=== PATIENT | female | born 1965 | race Caucasian/White ===

== ENCOUNTER 2022-07-07 11:42 | Outpatient (CLI) | payer OTHER, SELFPAY ==
--- OUTSIDE RECORDS SUMMARY | 2022-07-07 11:44 | XMS_ITS | Clinical Summary ---
:1965 Author Organization [facility] [place] [address] Care Team Providers Name Role Phone Isabel Gallagher MD Primary Care Provider Unavailable Allergies Active Allergy Reactions Severity Noted Date Comments Trazodone *Unknown Low 06/03/2018 jitters Medications Not on file Active Problems Not on file Social History Tobacco Use Types Packs/Day Years Used Date Never Assessed Sex Assigned at Date Recorded Not on file Last Filed Vital Signs Vital Sign Reading Time Taken Comments Blood Pressure 144/91 01/27/2021 5:49 PM CDT Pulse 108 01/27/2021 3:15 PM CDT Temperature 37.1 ??C (98.8 ??F) 01/27/2021 3:15 PM CDT Respiratory Rate 18 01/27/2021 5:49 PM CDT Oxygen Saturation 100% 01/27/2021 5:49 PM CDT Inhaled Oxygen Concentration - - Weight 61.2 kg (135 lb) 01/27/2021 3:48 PM CDT Height 167.6 cm (5' 6) 01/27/2021 3:48 PM CDT Body Mass Index 21.79 01/27/2021 3:48 PM CDT Plan of Treatment Not on file Results Not on filefrom Last 3 Months Insurance Payer Benefit Plan / Subscriber ID Effective Dates Phone Addre ss Type Group [employer] [id number] 2013-Present [address] [place] [address] Care Teams Condominium Property Manager Relationship Specialty Start Date End Date Isabel Gallagher MD PCP - General Family Practice 01/07/11
--- OUTSIDE RECORDS SUMMARY | 2022-07-07 11:44 | XMS_ITS | Encounter Summary ---
:1965 Author Organization [facility] Address [address] [place] [address] Care Team Providers Name Role Phone Isabel Gallagher Primary Care Provider Encounter Details Date Type Department Care Team Description [facility] CONVERSION Provider, Histor ical Social History Tobacco Use Types Packs/Day Years Used Date Smoking Tobacco: Never Smokeless Tobacco: Never Sex Assigned at Date Recorded Not on file documented as of this encounter Plan of Treatment Not on filedocumented as of this encounter Procedures Procedure Name Priority Date/Time Associated Diagnosis Comme nts XR ESOPHAGRAM Routine 06/26/2004 12:00 AM Results for this RN INFUSION procedure are i n the results section . documented in this encounter Results XR Esophagram (06/26/2004 12:00 AM RN INFUSION) Anatomical Region Laterality Modality Chest Other Specimen (Source) Anatomical Location Collection Method / Collectio n Time Received Time / Laterality Volume Narrative 06/26/2004 12:00 AM RN INFUSION See Historical Hospital Medical Record f or documentation Procedure Note Provider, Historical - 01/18/2021Formatt ing of this note might be different from the original. See Historical Hospital Medical Record f or documentation Historical Provider IMG DIAGNOSTIC IMAGING ORDER MATTEO documented in this encounter Visit Diagnoses Not on filedocumented in this encounter Care Teams Jogger Operator Relationship Specialty Start Date End Date Isabel Gallagher PCP - General Family Practice 04/01/19 documented as of this encounter
--- OUTSIDE RECORDS SUMMARY | 2022-07-07 11:44 | XMS_ITS | Encounter Summary ---
:1965 Author Organization [facility] Address [address] [place] [address] Care Team Providers Name Role Phone Isabel Gallagher Primary Care Provider Encounter Details Date Type Department Care Team Description 03/05/2021 Records - [facility] ERENDIRA PADGETT CONVERSION Provider, Histor ical Social History Tobacco Use Types Packs/Day Years Used Date Smoking Tobacco: Never Smokeless Tobacco: Never Sex Assigned at Date Recorded Not on file documented as of this encounter Plan of Treatment Not on filedocumented as of this encounter Procedures Procedure Name Priority Date/Time Associated Diagnosis Comme nts MA SCREENING Routine 09/25/2005 12:00 AM Results for this BILATERAL INSURANCE FOLLOW UP REPRESENTATIVE procedure are i n the results section. documented in this encounter Results MA Screening Bilateral (09/25/2005 12:00 AM INSURANCE FOLLOW UP REPRESENTATIVE) Anatomical Region Laterality Modality Breast Bilateral Other Specimen (Source) Anatomical Location Collection Method / Collectio n Time Received Time / Laterality Volume Narrative 09/25/2005 12:00 AM INSURANCE FOLLOW UP REPRESENTATIVE See Historical Hospital Medical Record f or documentation Procedure Note Provider, Historical - 03/05/2021Formatt ing of this note might be different from the original. See Historical Hospital Medical Record f or documentation Historical Provider IMG MAMMOGRAPHY ORDERABLES documented in this encounter Visit Diagnoses Not on filedocumented in this encounter Care Teams Workforce Investment Act Career Manager Relationship Specialty Start Date End Date Isabel Gallagher PCP - General Family Practice 04/01/19 documented as of this encounter
--- OUTSIDE RECORDS SUMMARY | 2022-07-07 11:44 | XMS_ITS | Encounter Summary ---
:1965 Author Organization [facility] Address [address] [place] [address] Care Team Providers Name Role Phone AileenIsabelAnabel Primary Care Provider Reason for Referral Diagnostic Imaging XR (Routine) - Closed Specialty Diagnoses / Procedures Referred By Contact Refer red To Contact Diagnoses Left foot pain Yaima Nolan, AURELIO, Procedures XR Foot Left G/E 3 Views Podiatry/Foot and Ankle Surgery [address] [place] [address] Referral ID Status Reason Start Date Expiration Date Visits Requ ested Visits Authorized [id number] Closed 04/01/2019 03/31/2020 1 1 Reason for Visit Reason Comments Musculoskeletal Problem Encounter Details Date Type Department Care Team Description 04/01/2019 Office Visit [facility] Yaima Staton, Left fo ot pain (Primary Dx); [facility] [place] DPDarin, Podiatry/Foot Gangli on cyst of left foot Podiatry and Ankle Surgery [address] [facility] [address] [place] [address] [place], [place] [phone] (Wo rk) Social History Tobacco Use Types Packs/Day Years Used Date Smoking Tobacco: Never Smokeless Tobacco: Never Tobacco Cessation: Counseling Given: No Sex Assigned at Date Recorded Not on file documented as of this encounter Last Filed Vital Signs Vital Sign Reading Time Taken Comments Blood Pressure 122/62 04/01/2019 2:20 PM CDT Pulse - - Temperature - - Respiratory Rate - - Oxygen Saturation - - Inhaled Oxygen Concentration - - Weight 61.7 kg (136 lb) 04/01/2019 2:20 PM CDT Height 167.6 cm (5' 6) 04/01/2019 2:20 PM CDT Body Mass Index 21.95 04/01/2019 2:20 PM CDT documented in this encounter Patient Instructions Patient InstructionsYoandy Byrne - 04/01/2019 2:15 PM CDT Thank you for choosing [facility]! [facility] SCHEDULE THURSDAY AM - [place] THURSDAY - [place] [address] [facility] [address] [address] [address] [place] [address] / FX [phone] / FX [phone] THURSDAY - [place] THUR[place]AY AM - [facility] [address] [address] [place] [address] [address] [address] / FX [phone] THURSDAY PM - [place] SCHEDULE SURGERY: [phone] BILLING QUESTIONS: [phone] [place] [address] AFTER HOURS: / FX [phone] APPOINTMENTS: [phone] [employer] ([employer]) [phone] GANGLION CYST A ganglion cyst is a sac filled with a jellylike fluid that originates from a tendon sheath or jointcapsule. The word ???ganglion?? means ???knot?? and is used to describe the knot-like mass or lumpthat forms below the surface of the skin. Ganglion cysts are among the most common benign soft-tissue masses. Although they most often occur on the wrist, they also frequently develop on the foot - usually on the top, but elsewhere as well. Ganglion cysts vary in size, may get smaller and larger, and may even disappear completely, only to return later. CAUSES Although the exact cause of ganglion cysts is unknown, they may arise from trauma - whether a singleevent or repetitive micro-trauma. SYMPTOMS A noticeable lump - often this is the only symptom experienced Tingling or burning, if the cyst is touching a nerve Dull pain or ache - which may indicate the cyst is pressing against a tendon or joint Difficulty wearing shoes due to irritation between the lump and the shoe DIAGNOSIS To diagnose a ganglion cyst, the foot and ankle surgeon will perform a thorough examination of the foot. The lump will be visually apparent and, when pressed in a certain way, it should move freely underneath the skin. Sometimes the surgeon will shine a light through the cyst or remove a small amount of fluid from the cyst for evaluation. Your doctor may take an x-ray, and in some cases additional imaging studies may be ordered. NON-SURGICAL TREATMENT Monitoring, but no treatment. If the cyst causes no pain and does not interfere with walking, the surgeon may decide it is best to carefully watch the cyst over a period of time. Shoe modifications. Wearing shoes that do not rub the cyst or cause irritation may be advised. In addition, placing a pad inside the shoe may help reduce pressure against the cyst. Aspiration and injection. This technique involves draining the fluid and then injecting a steroid medication into the mass. More than one session may be needed. Although this approach is successful in some cases, in many others the cyst returns. SURGICAL TREATMENT When other treatment options fail or are not appropriate, the cyst may need to be surgically removed. While the recurrence rate associated with surgery is much lower than that experienced with aspiration and injection therapy, there are nevertheless cases in which the ganglion cyst returns. BODY WEIGHT AND YOUR FEET The following information is included in the after visit summary for all patients. Body weight can be a sensitive issue to discuss in clinic, but we think the following information is very important. Although we focus on the feet and ankles, we do support the overall health of our patients. Many things can cause foot and ankle problems. Foot structure, activity level, foot mechanics and injuries are common causes of pain. One very important issue that often goes unmentioned, is body weight. Extra weight can cause increased stress on muscles, ligaments, bones and tendons. Sometimes just afew extra pounds is all it takes to put one over her/his threshold. Without reducing that stress, itcan be difficult to alleviate pain. As Foot & Ankle specialists, our job is addressing the lowerextremity problem and possible causes. Regarding extra body weight, we encourage patients to discussdiet and weight management plans with their primary care doctors. It is this team approach that gives you the best opportunity for pain relief and getting you back on your feet. [facility] has a Comprehensive Weight Management Program. This program includes counseling, education,non-surgical and surgical approaches to weight loss. If you are interested in learning more either talk to you primary care provider or call [phone]. documented in this encounter Progress Notes Yaima Nolan, AURELIO, Podiatry/Foot and Ankle Surgery - 04/01/2019 2:15 PM CDT PATIENT HISTORY: Kristal Murray is a 53 year old female who presents to clinic for lump on side of left foot. Has had it for 9 months. Pain can be 3/10 with pressure. Worse with tighter shoes. Triedicing and heat which helps some. wondering what it is and what can be done for it. Review of Systems: Patient denies fever, chills, rash, wound, stiffness, limping, numbness, weakness, heart burn, blood in stool, chest pain with activity, calf pain when walking, shortness of breath with activity, chronic cough, easy bleeding/bruising, swelling of ankles, excessive thirst, fatigue, de pression, anxiety. PAST MEDICAL HISTORY: No past medical history on file. PAST SURGICAL HISTORY: No past surgical history on file. MEDICATIONS: Current Outpatient Medications: ??? lovastatin (MEVACOR) 20 MG tablet, Take 20 mg by mouth At Bedtime, Disp: , Rfl: 2 ??? omeprazole (PRILOSEC) [address] capsule, TAKE 1 CAPSULE BY MOUTH EVERY DAY, Disp: , Rfl: 2 ALLERGIES: No Known Allergies SOCIAL HISTORY: Social History Socioeconomic History ??? Marital status: Spouse name: Not on file ??? Number of children: Not on file ??? Years of education: Not on file ??? Highest education level: Not on file Occupational History ??? Not on file Social Needs ??? Financial resource strain: Not on file ??? Food insecurity: Worry: Not on file Inability: Not on file ??? Transportation needs: Medical: Not on file Non-medical: Not on file Tobacco Use ??? Smoking status: Never Smoker ??? Smokeless tobacco: Never Used Substance and Sexual Activity ??? Alcohol use: Not on file ??? Drug use: Not on file ??? Sexual activity: Not on file Lifestyle ??? Physical activity: Days per week: Not on file Minutes per session: Not on file ??? Stress: Not on file Relationships ??? Social connections: Talks on phone: Not on file Gets together: Not on file Attends adventism service: Not on file Active member of club or organization: Not on file Attends meetings of clubs or organizations: Not on file Relationship status: Not on file ??? Intimate partner violence: Fear of current or ex partner: Not on file Emotionally abused: Not on file Physically abused: Not on file Forced sexual activity: Not on file Other Topics Concern ??? Not on file Social History Narrative ??? Not on file FAMILY HISTORY: No family history on file. EXAM:Vitals: BP 122/62 Ht 1.676 m (5' 6) Wt 61.7 kg (136 lb) BMI 21.95 kg/m?? BMI= Body mass index is 21.95 kg/m??. General appearance: Patient is alert and fully cooperative with history & exam. No sign of distress is noted during the visit. Psychiatric: Affect is pleasant & appropriate. Patient appears motivated to improve health. Respiratory: Breathing is regular & unlabored while sitting. HEENT: Hearing is intact to spoken word. Speech is clear. No gross evidence of visual impairment that would impact ambulation. Dermatologic: Skin is intact to both lower extremities without significant lesions, rash or abrasion. No paronychia or evidence of soft tissue infection is noted. Vascular: DP & PT pulses are intact & regular bilaterally. No significant edema or varicosities noted. CFT and skin temperature is normal to both lower extremities. Neurologic: Lower extremity sensation is intact to light touch. No evidence of weakness or contracture in the lower extremities. No evidence of neuropathy. Musculoskeletal: Patient is ambulatory without assistive device or brace. Palpable fluctuant mass todorsal lateral left foot just distal to sinus tarsi. ASSESSMENT: Left foot pain Ganglion cyst of left foot PLAN: Reviewed patient's chart in [facility]. Talked about cysts. Explained they are jelly filled sacs. Treatments include monitoring, aspiration, surgical removal. Discussed they are highly recurrently. Risks of surgery including infection, painful scar, recurrence, need for further surgery. At this time she is going to monitor it. Try topical pain cream since intermittently sore. Talked about removal. Would be 2 week recovery in boot with weight bearing in boot. Talked about risks including infection, numbness, continued pain, recurrence, need for further surgery, blood loss, blood clotting. You will scar. Yaima Nolan DPM, Podiatry/Foot and Ankle Surgery documented in this encounter Plan of Treatment Not on filedocumented as of this encounter Results XR Foot Left G/E 3 Views (04/01/2019 2:30 PM CDT) Anatomical Region Laterality Modality Foot, Ankle Left Computed Radiography Specimen (Source) Anatomical Location Collection Method / Collectio n Time Received Time / Laterality Volume Impressions 04/01/2019 2:45 PM CDT IMPRESSION: No acute fracture or malalignment. There is normal joint spacing and alignment. Bipartite medial hallux sesamoid. Small plantar calcaneal bone spur. HUMBERTO WILKINS MD Narrative 04/01/2019 2:45 PM CDT FOOT THREE VIEWS LEFT ??04/01/2019 2:30 PM HISTORY: weight bearing; Left foot pain COMPARISON: None. Procedure Note Humberto Wilkins MD - 04/01/2019For matting of this note might be different from the original. FOOT THREE VIEWS LEFT 04/01/2019 2:30 PM HISTORY: weight bearing; Left foot pain COMPARISON: None. IMPRESSION: No acute fracture or malalig nment. There is normal joint spacing and alignment. Bipartite medial hallux sesamoid. Small plantar calcaneal bone spur. HUMBERTO WILKINS MD Yaima Nolan DPM, Podiatry/Foot and Ankle Surgery IMG DIAGNOSTIC IMAGING ORDERABLES documented in this encounter Visit Diagnoses Diagnosis Left foot pain - Primary Pain in limb Ganglion cyst of left foot Left foot pain Pain in limb documented in this encounter Care Teams Php Consultant Relationship Specialty Start Date End Date Isabel Gallagher PCP - General Family Practice 04/01/19 documented as of this encounter
--- OUTSIDE RECORDS SUMMARY | 2022-07-07 11:44 | XMS_ITS | Encounter Summary ---
:1965 Author Organization [facility] Address [address] [place] [address] Care Team Providers Name Role Phone Isabel Gallagher Primary Care Provider Encounter Details Date Type Department Care Team Description 01/19/2021 Records - [facility] PADGETT CONVERSION Provider, Histor ical Social History Tobacco Use Types Packs/Day Years Used Date Smoking Tobacco: Never Smokeless Tobacco: Never Sex Assigned at Date Recorded Not on file documented as of this encounter Plan of Treatment Not on filedocumented as of this encounter Procedures Procedure Name Priority Date/Time Associated Comments Diagnosis US PELVIC Routine 12/10/2005 12:00 Results for this TRANSABDOMINAL AM CDT procedure are in the results section. documented in this encounter Results US Pelvis Complete without Transvaginal (12/10/2005 12:00 AM CDT) Anatomical Region Laterality Modality Abdomen/Pelvis Other Specimen (Source) Anatomical Location Collection Method / Collectio n Time Received Time / Laterality Volume Narrative 12/10/2005 12:00 AM CDT See Historical Hospital Medical Record f or documentation Procedure Note Provider, Historical - 01/19/2021Formatt ing of this note might be different from the original. See Historical Hospital Medical Record f or documentation Historical Provider IMG US ORDERABLES documented in this encounter Visit Diagnoses Not on filedocumented in this encounter Care Teams Production Dispatcher Relationship Specialty Start Date End Date Isabel Gallagher PCP - General Family Practice 04/01/19 documented as of this encounter
--- OUTSIDE RECORDS SUMMARY | 2022-07-07 11:44 | XMS_ITS | Encounter Summary ---
:1965 Author Organization [facility] Address [address] [place] [address] Care Team Providers Name Role Phone Aileen Isabel Samuel Primary Care Provider Reason for Visit Diagnostic Imaging XR (Routine) - Closed Specialty Diagnoses / Procedures Referred By Contact Refer red To Contact Diagnoses Left foot pain Yaima Nolan, DPM, Procedures XR Foot Left G/E 3 Views Podiatry/Foot and Ankle Surgery [address] [place] [address] Referral ID Status Reason Start Date Expiration Date Visits Requ ested Visits Authorized [id number] Closed 04/01/2019 03/31/2020 1 1 Encounter Details Date Type Department Care Team Description 04/01/2019 Ancillary Procedure [facility] Yaima Nolan, Left foot pain Sports and Orthopedic DPM, Podiatry/Foot Care [facility] [address] [facility] [address] [address] [address] [place] [address] [place], [place] [phone] Social History Tobacco Use Types Packs/Day Years Used Date Smoking Tobacco: Never Smokeless Tobacco: Never Sex Assigned at Date Recorded Not on file documented as of this encounter Plan of Treatment Not on filedocumented as of this encounter Procedures Procedure Name Priority Date/Time Associated Diagnosis Comme nts XR FOOT LEFT G/E 3 Routine 04/01/2019 2:30 PM Left foot pain R esults for this VIEWS CDT procedure are i n the results section. documented in this encounter Results XR Foot Left G/E [...] encounter Visit Diagnoses Diagnosis Left foot pain Pain in limb documented in this encounter Care Teams Lead Sustainability Specialist Relationship Specialty Start Date End Date Isabel Gallagher PCP - General Family Practice 04/01/19 documented as of this encounter
--- OUTSIDE RECORDS SUMMARY | 2022-07-07 11:44 | XMS_ITS | Clinical Summary ---
:1965 Author Organization [facility] Address [address] [place] [address] Care Team Providers Name Role Phone Isabel Gallagher Ann Primary Care Provider Allergies No known active allergies Medications Medication Sig Dispensed Refills Start Date End Date Status omeprazole (PRILOSEC) TAKE 1 CAPSULE BY 2 01/14/[address] capsule MOUTH EVERY DAY lovastatin (MEVACOR) Take 20 mg by 2 06/03/2018 Active 20 MG tablet mouth At Bedtime Social History Tobacco Use Types Packs/Day Years [...] Mass Index 21.95 04/01/2019 2:20 PM CDT Plan of Treatment Not on file Insurance Payer Benefit Plan / Subscriber ID Effective Phone Address T ype Group Dates [facility] [facility] [id number] 2013-Pres [phone] [address] O OPEN ACCESS ent [address] [place] [address] Care Teams Double Cut Sawyer Relationship Specialty Start Date End Date Isabel Gallagher PCP - General Family Practice 04/01/19
--- OUTSIDE RECORDS SUMMARY | 2022-07-07 11:44 | XMS_ITS | Encounter Summary ---
:1965 Author Organization [facility] Address [address] [place] [address] Care Team Providers Name Role Phone Isabel Gallagher Primary Care Provider Encounter Details Date Type Department Care Team Description 04/01/2019 Travel Social History Tobacco Use Types Packs/Day Years Used Date Smoking Tobacco: Never Smokeless Tobacco: Never Sex Assigned at Date Recorded Not on file documented as of this encounter Plan of Treatment Not on filedocumented as of this encounter Visit Diagnoses Not on filedocumented in this encounter Care Teams Brain Wave Technician Relationship Specialty Start Date End Date Isabel Gallagher PCP - General Family Practice 04/01/19 documented as of this encounter
[2022-07-07 17:56] LABS: Chlamydia DNA Amplified* NOT DETECTED (No Detected); GC DNA Amplified* NOT DETECTED (No Detected)
== END 2022-07-07 11:43 | disposition home or self-care (01) ==
PROVIDERS: Visit Provider Obstetrics & Gynecology
DX: N89.8 Other specified noninflammatory disorders of vagina (principal)
CPT/HCPCS: 87491; 87591